=== PATIENT | male | born 1955 | race Hispanic/Latino ===

== ENCOUNTER 2021-04-18 13:10 | Emergency (ER) | payer MEDICARE ==
[~2021-04-18] VITALS: Ht 170.2 cm; Wt 74.8 kg
[2021-04-18] MEDS ORDERED: CLEOCIN HCL300 MG PO (13:57)
[2021-04-18] MEDS ORDERED: IBUPROFEN IB200 MG PO (13:57)
== END 2021-04-18 14:04 | disposition home or self-care (01) ==
LOC: FSED 13:18
DX: L60.0 Ingrowing nail (principal); E11.9 Type 2 diabetes mellitus without complications
CPT/HCPCS: 99283